=== PATIENT | male | born 1955 | race Caucasian/White ===

== ENCOUNTER → 2020-06-10 | Outpatient (CLI) | payer MEDICARE, BC ==
[~2020-06-10] MED LIST: ALPR.5 PO; Ativan1 MG PO; BUPR150ER PO; DEXL60CA3 PO; ESZO1 PO; HYDHCL25 PO; Haldol 5 mg Tab5 MG PO; LEVSOD100 PO; MORPHINE; MORPHINE PUMP; OMEG1CAP30 PO; OMEP20ER PO; OXYACE5T PO; OXYC40ER PO; PARO10 PO; PREG300 PO; SOLI5 PO; Synthroid88 MCG PO; TAMS.4ER PO; TRAZ50 PO; ZOLP10 PO
== END ==
LOC: PLD 14:14 → LAB SHORT 14:14
DX: D22.5 Melanocytic nevi of trunk (principal)
CPT/HCPCS: 88341; 88342

== ENCOUNTER → 2021-08-16 | Outpatient (CLI) | payer MEDICARE, BC | END | disposition home or self-care (01) | LOC: LAB SHORT 14:50 → LAB 14:50 | DX: L57.0 Actinic keratosis (principal) | CPT/HCPCS: 88305 ==

== ENCOUNTER → 2023-01-24 | Outpatient (CLI) | payer MEDICARE, BC | END | disposition home or self-care (01) | LOC: LAB SHORT 16:36 → LAB 16:36 | DX: N39.0 Urinary tract infection, site not specified (principal) | CPT/HCPCS: 87077; 87086; 87186 ==

== ENCOUNTER 2024-09-25 13:34 | Day surgery (SDC) | payer MEDICARE, BC ==
[~2024-09-25] VITALS: Ht 182.9 cm; Wt 117.3 kg
[~2024-09-25 13:34] MED LIST changes: +Atropine Sulfate 0.1 MG/ML 10ML SYR ONE; +Glycopyrrolate 0.2 MG/ML 1MLVIAL ONE; +Lactated Ringer's 1,000 ML IV ONE; +Lidocaine 2% 5 ML SDV ONE; +Lidocaine HCl/Pf 1% 5 ML VIAL ONE; +Methylene Blue 1% 100 MG/10 ML VIAL ONE; +Ondansetron HCl 2 MG / ML 2ML Vial ONE; +ePHEDrine Sulfate 50 MG/ML 1ML Injection ONE; +propofoL 50 ML IV ONE
[2024-09-25] MEDS ORDERED: VALS80 (14:14)
[2024-09-25] MEDS ORDERED: XARELTO20 MG (14:15)
[2024-09-25] MEDS ORDERED: DULO60 (14:15)
[2024-09-25] MEDS ORDERED: WEGOVY1 MG/0.5 M (14:16)
[2024-09-25] MEDS ORDERED: Lactated Ringer's 1,000 ML IV ONE (15:32)
[2024-09-25 17:56] VITALS: BP 115/85
== END 2024-09-25 17:50 | disposition home or self-care (01) ==
LOC: ORSCSDS 13:34
PROVIDERS: Internal Medicine Gastroenterology
PROC: 0DBM8ZX Excision of Descending Colon, Via Natural or Artificial Opening Endoscopic, Diagnostic (ICD-10-PCS; principal; 2024-09-25 15:00)
DX: Z12.11 Encounter for screening for malignant neoplasm of colon (principal); Z86.0101 Personal history of adenomatous and serrated colon polyps; K63.5 Polyp of colon; K57.30 Diverticulosis of large intestine without perforation or abscess without bleeding; I48.91 Unspecified atrial fibrillation; Z79.01 Long term (current) use of anticoagulants; I10 Essential (primary) hypertension; E03.9 Hypothyroidism, unspecified; E66.9 Obesity, unspecified; Z68.34 Body mass index [BMI] 34.0-34.9, adult; Z79.899 Other long term (current) drug therapy
CPT/HCPCS: 88305; J0461; J2003; J2405; J2704; J7120; Q9968